=== PATIENT | female | born 1965 | race American Indian/Alaskan Native ===

== ENCOUNTER 2017-10-22 14:12 | Outpatient (CLI) | payer BC ==
--- NOTE | 2017-10-24 19:13 | Magnetic Resonance Report ---
FINAL REPORT PROCEDURE: MR UE JOINT LT WO/W CON TECHNIQUE: Magnetic resonance imaging of the LEFT shoulder was performed using standard pulse sequences before and after the IV injection of paramagnetic contrast. CPT 98527 HISTORY: LEFT SHOULDER PAIN COMPARISON: No prior studies are available for comparison. FINDINGS: No fracture dislocation or joint effusion is seen. There is mild hypertrophic degenerative changes in the AC joint. There appears to be a small bony spur projecting from the distal end of the acromion. Small cystic areas are seen in the superior lateral aspect of the humeral head adjacent to greater tuberosity. There is minimal linear enhancement of the distal supraspinatus tendon on the postcontrast coronal images suggesting a small area of tendinitis. The supraspinatus, the infra spinatus teres minor and subscapularis tendons otherwise appear intact. Long head of the biceps tendon is appropriately located within its groove. Glenoid labrum appears intact. Biceps anchor appears intact. There is mild enhancement of the subacromial/subdeltoid bursa consistent with mild bursitis. IMPRESSION: There appears to be a small spur projecting from the distal end of the acromion and mild nonspecific cystic degenerative changes in the superior lateral aspect of the humeral head adjacent to greater tuberosity. There is minimal linear enhancement in the supraspinatus tendon suggesting tendinitis. I do not see a discrete tear or retraction. Remainder of the rotator cuff appears intact. There is mild enhancement of the subacromial subdeltoid bursa consistent with mild bursitis. There is mild hypertrophic degenerative change in the AC joint. No other abnormalities are identified.
== END 2017-10-22 14:13 | disposition home or self-care (01) ==
LOC: SPVIMAG 14:12
DX: M19.012 Primary osteoarthritis, left shoulder (principal)
CPT/HCPCS: 73223; A9577

== ENCOUNTER 2018-01-29 06:52 | Day surgery (SDC) | payer BC ==
[~2018-01-29 06:52] MED LIST: WATER FOR IRRIG STERILE IR ONE
[2018-01-29] MEDS ORDERED: DIPRIVAN 10 MG/ML IV ONE ×2 (08:10→08:11)
[2018-01-29] MEDS ORDERED: WATER FOR IRRIG STERILE IR ONE (08:10)
--- NOTE | 2018-01-29 09:00 | Short Stay Summary ---
Short Stay Documentation Date of service: 01/29/18 Narrative H&P: The patient presents for her first screening colonoscopy. - History Past Medical History: arthritis, hypertension Past Surgical History: appendectomy Social history: no significant social history, no smoking, no alcohol abuse, no prescription drug abuse - Allergies and Medications Current Medications: Allergies penicillin Allergy (Verified 06/07/15 02:39) Rash Home Medications Medication Instructions Recorded Confirmed Last Taken Type ALPRAZolam [Xanax TAB] 0.5 mg PO QHS 06/07/15 06/07/15 Unknown History Bisoprolol/Hydrochlorothiazide 1 tab PO BID 06/07/15 06/07/15 Unknown History [Bisoprolol-Hctz 5-6.25 mg Tab] Butalb/Acetaminophen/Caffeine 1 cap PO Q6HR PRN 06/07/15 06/07/15 Unknown History [Fioricet 50-300-40 mg CAP] Folic Acid 1 tab PO DAILY 06/07/15 06/07/15 Unknown History HYDROcodone/APAP 5-325 [Panther Burn 1 each PO Q6HR PRN 06/07/15 06/07/15 Unknown History 5/325] Losartan/Hydrochlorothiazide 1 tab PO DAILY 06/07/15 06/07/15 Unknown History [Losartan-Hctz 100-25 mg Tab] Methotrexate Sodium [Methotrexate] 10 mg PO QWEEK 06/07/15 06/07/15 Unknown History Potassium Chloride 20 meq PO BID 06/07/15 06/07/15 Unknown History Sertraline [Zoloft] 50 mg PO QDAY 06/07/15 06/07/15 Unknown History cloNIDine [Catapres] 0.1 mg PO Q8H 06/07/15 06/07/15 Unknown History predniSONE [Deltasone] 5 mg PO QDAY 06/07/15 06/07/15 Unknown History ALPRAZolam [Xanax TAB] 0.5 mg PO BID #60 tablet 06/08/15 Unknown Rx - Physical exam General appearance: no acute distress, well-nourished Integumentary: no rash, no growths HEENT: Atraumatic, PERRLA, EOMI, Mucous membr. moist/pink Lungs: Clear to auscultation, Normal air movement Breasts: deferred Heart: Regular rate, Normal S1, Normal S2, No murmurs Gastrointestinal: normal, tenderness, distended, masses, organomegaly Female Genitourinary: deferred Rectal Exam: deferred Extremities: no ischemia, pulses intact, pulses symmetrical Neurological: Normal gait, Normal speech, Strength at 5/5 X4 ext, Normal tone, Sensation intact, Cranial nerves 3-12 NL - Brief post op/procedure progress note Date of procedure: 01/29/18 Findings: see dictated report. Estimated blood loss: none Pathology: none Condition: stable - Disposition Condition at discharge: Good Disposition: DC-01 TO HOME OR SELFCARE Short Stay Discharge Plan Activity: other (no driving for 24 hours) Weight Bearing Status: Weight Bear as Tolerated Diet: regular Follow up with: AYO DOMINGO MD [Primary Care Provider] - 7 Days
--- NOTE | 2018-01-29 09:01 | Operative Report ---
Operative Report Operative Report: Date of procedure: 01/29/2018 Preprocedure diagnosis: Colon cancer screening, first study. Average risk. Post procedure diagnosis: Normal colon Procedure: Colonoscopy to the cecum Endoscopist: Dr. Encinas Anesthesia: Monitored anesthesia care per anesthesia department Estimated blood loss: 0 Medications: Monitored anesthesia care. See separate report by anesthesia for details. After careful discussion of the nature and purpose of the procedure as well as details of the technique risks benefits and alternatives the patient gave consent. Please see recent history and physical from the office. The patient was placed in the left lateral decubitus position and medicated per anesthesia. A rectal exam was performed sphincter tone was normal there were no masses palpable. The Nitro[employer] 570 scope was passed transanally and advanced under continuous direct vision without difficulty to the cecum. The colon was well prepared. The cecum was normal. The ascending colon was normal and on forward and retroflexed views. The transverse colon, descending colon, and sigmoid colon were normal. The rectum was normal on forward and retroflexed views. The procedure was well-tolerated overall and the patient was observed in recovery. Conclusions: Normal colonoscopy to the cecum. Plan: Repeat colonoscopy in 10 years, sooner if clinically indicated Signed electronically: Prosper Encinas M.D.
[2018-01-29] MEDS ORDERED: NACL 0.9% 1000 ML 1,000 ML IV SCH (10:00)
--- NOTE | 2018-01-29 10:35 | Anesthesia Consultation ---
Anesthesia Consult and Med Hx Date of service: 01/29/18 - Airway Anesthetic Teeth Evaluation: Good ROM Head & Neck: Adequate Mental/Hyoid Distance: Adequate Mallampati Class: Class II Intubation Access Assessment: Probably Good - Pulmonary Exam CTA: Yes - Cardiac Exam Cardiac Exam: RRR - Pre-Operative Health Status ASA Pre-Surgery Classification: ASA2 Proposed Anesthetic Plan: MAC - Cardiovascular System Hx Hypertension: Yes - Central Nervous System Hx Neuromuscular Disorder: Yes (Rheumatoid arthiritis )
--- NOTE | 2018-01-29 10:36 | Anesthesia Day of Surgery ---
Anesthesia Day of Surgery - Day of Surgery Patient Examined: Yes Patient H&P Reviewed: Yes Patient is NPO: Yes
--- NOTE | 2018-01-29 14:35 | Post Anesthesia Evaluation ---
- Post Anesthesia Evaluation Patient Participated: Yes Airway Patent: Yes Stable Respiratory Function: Yes Nausea/Vomiting: No Temp > 96.8F: Yes Pain Manageable: Yes Adequeate Hydration: Yes Anesthesia Complications: No
[2018-01-29 17:31] VITALS: BP 114/61
== END 2018-01-29 06:53 | disposition home or self-care (01) ==
LOC: GIO 06:52
PROVIDERS: ATTEND Internal Medicine Gastroenterology
DX: Z12.11 Encounter for screening for malignant neoplasm of colon (principal); I10 Essential (primary) hypertension; M06.9 Rheumatoid arthritis, unspecified; Z88.0 Allergy status to penicillin
CPT/HCPCS: 45378; J2704; J7030

== ENCOUNTER 2018-09-27 07:38 | Outpatient (CLI) | payer BC ==
--- NOTE | 2018-09-27 10:08 | Mammography Report ---
BILATERAL DIGITAL SCREENING MAMMOGRAM with CAD: 09/27/18 CLINICAL: Routine screening. COMPARISON:None available. However, a prior mammogram was apparently done at [facility]. FINDINGS: The breasts are heterogeneously dense, which may obscure small masses. A right asymmetry on the MLO view requires comparison with a prior mammogram or additional imaging.No architectural distortion or suspicious calcifications.The left breast is negative. IMPRESSION: Right asymmetry requiring further evaluation. BI-RADS CATEGORY: 0 -- Additional Evaluation Required RECOMMENDATION: Comparison with a previous mammogram. We will attempt to obtain a prior mammogram for comparison. If we do not obtain a prior mammogram within 30 days, a revised report will be issued recommending a recall for additional imaging. Please be advised that the patient should not schedule an appointment for return until adequate time (at least 2 weeks) has passed for us to obtain the prior mammogram. ACR BI-RADS MAMMOGRAPHIC CODES: 0 = Needs additional imaging evaluation; 1 = Negative; 2 = Benign; 3 = Probably benign; 4 = Suspicious; 5 = Malignant; 6 = Known biopsy-proven malignancy COMMENT: 1. Dense breast tissue, i.e., adenosis, fibrocystic changes, etc., may obscure an underlying neoplasm. 2. Approximately 10% of cancers are not detected with mammography. 3. A negative mammography report should not delay biopsy if a clinically suspicious mass is present. COMMENT: Patient follow-up letters are generated via our [employer] application.
== END 2018-09-27 07:39 | disposition home or self-care (01) ==
LOC: MAMMO 07:38
DX: Z12.31 Encounter for screening mammogram for malignant neoplasm of breast (principal); I10 Essential (primary) hypertension; E11.9 Type 2 diabetes mellitus without complications; E78.5 Hyperlipidemia, unspecified; M19.90 Unspecified osteoarthritis, unspecified site; Z90.49 Acquired absence of other specified parts of digestive tract
CPT/HCPCS: 77067

== ENCOUNTER 2018-11-26 09:56 | Outpatient (CLI) | payer BC ==
--- NOTE | 2018-11-26 16:12 | Mammography Report ---
RIGHT DIGITAL DIAGNOSTIC MAMMOGRAM and RIGHT BREAST ULTRASOUND: 11/26/18 09:56:00 CLINICAL: Recalled for asymmetry. COMPARISON:09/27/18 screening FINDINGS: Additional mammographic views were performed and are negative. Ultrasound of the upper-outer right breast was performed and demonstrated normal fibroglandular structures with no mass, cyst or shadowing. IMPRESSION: Negative mammogram and negative right breast ultrasound. BI-RADS CATEGORY: 1 -- Negative RECOMMENDATION: Routine mammographic screening in one year. ACR BI-RADS MAMMOGRAPHIC CODES: 0 = Needs additional imaging evaluation; 1 = Negative; 2 = Benign; 3 = Probably benign; 4 = Suspicious; 5 = Malignant; 6 = Known biopsy-proven malignancy COMMENT: 1. Dense breast tissue, i.e., adenosis, fibrocystic changes, etc., may obscure an underlying neoplasm. 2. Approximately 10% of cancers are not detected with mammography. 3. A negative mammography report should not delay biopsy if a clinically suspicious mass is present. COMMENT: Patient follow-up letters are generated via our [employer] application.
== END 2018-11-26 09:57 | disposition home or self-care (01) ==
LOC: MAMMO 09:56
DX: R92.8 Other abnormal and inconclusive findings on diagnostic imaging of breast (principal); I10 Essential (primary) hypertension; E11.9 Type 2 diabetes mellitus without complications; E78.5 Hyperlipidemia, unspecified; M19.90 Unspecified osteoarthritis, unspecified site; Z90.49 Acquired absence of other specified parts of digestive tract

== ENCOUNTER 2019-07-29 06:13 | Outpatient (CLI) | payer BC ==
[2019-07-29 06:42] LABS: Hematocrit 36.2 % (30.3-42.9); Hemoglobin 12.3 gm/dl (10.1-14.3); Mean Corpuscular HGB Conc 34 % (30-34); Mean Corpuscular Volume 85 fl (79-97); Platelet Count 264 K/mm3 (140-440); Red Blood Count 4.29 M/mm3 (3.65-5.03)
[2019-07-29 07:09] LABS: Alanine Aminotransferase 11 units/L (7-56); BUN/Creatinine Ratio 14; Blood Urea Nitrogen 10 mg/dL (7-17); Hemolysis Index 1
== END 2019-07-29 06:14 | disposition home or self-care (01) ==
LOC: LAB 06:13
PROVIDERS: ATTEND Internal Medicine
DX: R53.83 Other fatigue (principal); I10 Essential (primary) hypertension; M19.90 Unspecified osteoarthritis, unspecified site; Z90.89 Acquired absence of other organs
CPT/HCPCS: 36415; 80053; 84443; 85027

== ENCOUNTER 2019-08-04 14:23 | Outpatient (CLI) | payer BC ==
[2019-08-04 15:03] LABS: BUN/Creatinine Ratio 18; Blood Urea Nitrogen 11 mg/dL (7-17); Calcium 9.4 mg/dL (8.4-10.2); Hemolysis Index 2
== END 2019-08-04 14:24 | disposition home or self-care (01) ==
LOC: LAB 14:23
PROVIDERS: ATTEND Internal Medicine
DX: R53.83 Other fatigue (principal); E87.6 Hypokalemia; I10 Essential (primary) hypertension; E11.9 Type 2 diabetes mellitus without complications; E78.5 Hyperlipidemia, unspecified; Z90.49 Acquired absence of other specified parts of digestive tract
CPT/HCPCS: 36415; 80048

== ENCOUNTER 2020-09-20 06:35 | Outpatient (CLI) | payer BC ==
[2020-09-20 06:56] LABS: Mean Corpuscular HGB Conc 37 % (30-34); Mean Corpuscular Volume 83 fl (79-97); Platelet Count 278 K/mm3 (140-440); Red Blood Count 4.39 M/mm3 (3.65-5.03); Red Cell Distribution Width 14.4 % (13.2-15.2)
[2020-09-20 07:18] LABS: Hematocrit 36.6 % (30.3-42.9); Hemoglobin 13.5 gm/dl (10.1-14.3)
[2020-09-20 07:19] LABS: Alanine Aminotransferase 15 units/L (7-56); Albumin 4.3 g/dL (3.9-5); BUN/Creatinine Ratio 16; Blood Urea Nitrogen 14 mg/dL (7-17); Calcium 9.5 mg/dL (8.4-10.2); HDL Cholesterol 52 mg/dL (40-59); Hemolysis Index 1; LDL Cholesterol,Direct 164 mg/dL (50-130)
== END 2020-09-20 06:36 | disposition home or self-care (01) ==
LOC: LAB 06:35
PROVIDERS: ATTEND Internal Medicine
DX: Z00.00 Encounter for general adult medical examination without abnormal findings (principal); E11.65 Type 2 diabetes mellitus with hyperglycemia; R53.83 Other fatigue; E78.2 Mixed hyperlipidemia; E55.9 Vitamin D deficiency, unspecified
CPT/HCPCS: 36415; 80053; 80061; 82306; 83036; 84443; 85027

== ENCOUNTER 2020-09-27 06:19 | Outpatient (CLI) | payer BC ==
[2020-09-27 07:01] LABS: BUN/Creatinine Ratio 11; Blood Urea Nitrogen 9 mg/dL (7-17); Calcium 9.5 mg/dL (8.4-10.2); Hemolysis Index 5
== END 2020-09-27 06:20 | disposition home or self-care (01) ==
LOC: LAB 06:19
PROVIDERS: ATTEND Internal Medicine
DX: R53.83 Other fatigue (principal)
CPT/HCPCS: 36415; 80048

== ENCOUNTER 2021-05-16 06:15 | Outpatient (CLI) | payer BC ==
[2021-05-16 07:15] LABS: Alanine Aminotransferase 24 units/L (7-56); Albumin 4.2 g/dL (3.9-5); BUN/Creatinine Ratio 14; Blood Urea Nitrogen 13 mg/dL (7-17); Calcium 9.8 mg/dL (8.4-10.2); Hemolysis Index 4
== END 2021-05-16 06:16 | disposition home or self-care (01) ==
LOC: LAB 06:15
PROVIDERS: ATTEND Internal Medicine
DX: R53.83 Other fatigue (principal)
CPT/HCPCS: 36415; 80053; 84443

== ENCOUNTER 2021-10-25 00:01 | Emergency (ER) | payer BC ==
[2021-10-25 00:17] VITALS: BP 168/93
--- NOTE | 2021-10-25 02:29 | Emergency Department Report ---
Chief Complaint: Headache Stated Complaint: HIGH BP HEADACHE - HPI History of Present Illness: 56-year-old female presents to the ED complaining of a headache x1 year. Patient is requesting a CT of the head. States that she do not have a neurology in network with insurance . She states that she currently take a total of 18 different medication for migraines. Patient states that primary care doctor has informed her that she needs to be seen by neurology. Patient denies any nausea ,vomiting or chest pain at present . Patient is alert oriented x4. - Exam Vital Signs: Vital Signs 10/25/21 00:16 Temperature 98.5 F Pulse Rate 66 Respiratory 18 Rate Blood Pressure 168/93 O2 Sat by Pulse 99 Oximetry Physical Exam: General: Awake, appropriately interactive, no acute distress. Neck: Supple. Full range of motion intact. Cardiovascular: Normal peripheral perfusion. Pulmonary: No respiratory distress. Patient is speaking normally without use of accessory muscles. Skin: No apparent rashes or lesions. Neurological: No facial asymmetry. Speech is clear. Follows commands. Patient is alert and oriented. Musculoskeletal: Full range of motion, no crepitus. No tenderness to palpate nonerythematous no edema test appreciated. Able to bear weight and ambulate without difficulty. Distal neurovascular and motor/sensory function is intact. Psych: Cooperative. Appropriate mood and affect. MSE screening note: Focused history and physical exam performed. Due to findings the following was ordered: 56-year-old female presents to the ED complaining of a headache x1 year. Patient is requesting a CT of the head. States that she do not have a neurology in network with insurance . She states that she currently take a total of 18 different medication for migraines. Patient states that primary care doctor has informed her that she needs to be seen by neurology. Patient denies any nausea ,vomiting or chest pain at present . Patient is alert oriented x4. Discussed plan of care with patient. Patient discharged stable. Patient did not meet criteria for CT of the head Patient discussed with doctor:: TANNER LAGUNAS ED Disposition for MSE Clinical Impression: Headache Disposition: HOME / SELF CARE / HOMELESS Is pt being admited?: No Does the pt Need Aspirin: No Condition: Stable Instructions: Migraine Headache, [id number] Additional Instructions: Follow-up with primary care doctor Follow-up with neurology Return to ED for any worsening or new symptoms ED Review of Systems ROS: Stated complaint: HIGH BP HEADACHE Other details as noted in HPI Constitutional: denies: chills, fever Eyes: denies: eye pain, eye discharge, vision change ENT: denies: ear pain, throat pain Respiratory: denies: cough, shortness of breath, wheezing Cardiovascular: denies: chest pain, palpitations Endocrine: no symptoms reported Gastrointestinal: denies: abdominal pain, nausea, diarrhea Genitourinary: denies: urgency, dysuria, discharge Musculoskeletal: denies: back pain, joint swelling, arthralgia Skin: denies: rash, lesions Neurological: headache. denies: weakness, paresthesias Psychiatric: denies: anxiety, depression Hematological/Lymphatic: denies: easy bleeding, easy bruising
== END 2021-10-25 03:00 | disposition home or self-care (01) ==
LOC: ED 00:01
DX: R51.9 Headache, unspecified (principal)
CPT/HCPCS: 99282

== ENCOUNTER 2022-05-16 22:22 | Emergency (ER) | payer BC ==
[2022-05-17] MEDS ORDERED: ONDANSETRON 4 MG ODT TAB PO ONE (00:27)
[2022-05-17] MEDS ORDERED: IBUPROFEN 600 MG TAB PO ONE (00:27)
[2022-05-17] MEDS ORDERED: oxyCODONE /ACETAMINOPHEN 5-325MG TAB PO ONE (00:27)
--- NOTE | 2022-05-17 01:15 | XRay Report ---
XR ankle 3+V RT INDICATION / CLINICAL INFORMATION: fall - pain COMPARISON: None available. AP, LATERAL, AND OBLIQUE VIEWS RIGHT ANKLE FINDINGS: A thin curvilinear calcification along the lateral margin of the talus possibly reflects acute avulsi on. Soft tissue swelling overlies the lateral malleolus. Well-corticated bone fragments adjacent to t he tip of the medial malleolus are favored to reflect chronic avulsion injury. IMPRESSION: 1. Soft tissue swelling compatible with inversion injury. Small avulsion fragment adjacent to the lat eral margin of the talus suggested. Signer Name: Milton Gonzalez II, MD Signed: 05/17/2022 1:11 AM Workstation Name: [id number]
--- NOTE | 2022-05-17 01:17 | XRay Report ---
RIGHT FOOT 3 VIEW(S) INDICATION / CLINICAL INFORMATION: fall - pain COMPARISON: None available. FINDINGS: No fracture, dislocation, or significant soft tissue abnormality is demonstrated. No radiopaque forei gn bodies are identified. Mild hallux valgus deformity. IMPRESSION: 1. No evidence of acute pathology. Signer Name: Milton Gonzalez II, MD Signed: 05/17/2022 1:13 AM Workstation Name: [id number]
--- NOTE | 2022-05-17 01:20 | XRay Report ---
LEFT HIP 3 VIEW(S) INDICATION / CLINICAL INFORMATION: Fall - pain COMPARISON: None available. FINDINGS: No fracture, dislocation, or significant soft tissue abnormality is demonstrated. No radiopaque forei gn bodies are identified. Small vessel osteophytes are noted along the inferior left femoral head. IMPRESSION: 1. No radiographic evidence of acute fracture. Signer Name: Milton Gonzalez II, MD Signed: 05/17/2022 1:15 AM Workstation Name: [id number]
--- NOTE | 2022-05-17 01:48 | Emergency Department Report ---
ED Lower Extremity HPI - General Chief Complaint: Extremity Injury, Lower Stated Complaint: RIGHT FOOT INJURY AND LEFT HIP PAIN Source: patient Mode of arrival: Ambulatory Limitations: No Limitations - History of Present Illness Initial Comments: Patient is a 56-year-old female with a history of hypertension and rheumatoid arthritis who presents to the ED with complaint of acute onset persistent right ankle and foot and left hip pain for the last 3 days after she slipped and fell down the stairs when moving furniture from the house. Patient states that she slipped down as she came out of the house and heard a pop and landed on her right ankle after twisting the right ankle. Patient states that she can barely walk because of worsening pain in the right ankle and foot. Patient denies head or neck injuries, back pain, chest pain or shortness of breath, dizziness, syncope, seizures, numbness and tingling or weakness of upper and lower extremities bilaterally. MD Complaint: hip injury (left hip pain), ankle injury -: Gradual, days(s) (3) Injury: Hip: Left (pain), Ankle: Right (pain, swelling), Foot: Right (pain) Type of Injury: blunt Place: home Severity: severe Severity scale (0 -10): 8 Improves With: rest Worsens With: weight bearing, movement, palpation Context: fall, walking Associated Symptoms: swelling, able to partially bear weight. denies: numbness, tingling - Related Data Home Medications Medication Instructions Recorded Confirmed Last Taken ALPRAZolam [Xanax TAB] 0.5 mg PO QHS 06/07/15 06/07/15 Unknown Bisoprolol/Hydrochlorothiazide 1 tab PO BID 06/07/15 06/07/15 Unknown [Bisoprolol-Hctz 5-6.25 mg Tab] Butalb/Acetaminophen/Caffeine 1 cap PO Q6HR PRN 06/07/15 06/07/15 Unknown [Fioricet 50-300-40 mg CAP] Folic Acid 1 tab PO DAILY 06/07/15 06/07/15 Unknown HYDROcodone/APAP 5-325 [Chilton 1 each PO Q6HR PRN 06/07/15 06/07/15 Unknown 5-325 mg TAB] Losartan/Hydrochlorothiazide 1 tab PO DAILY 06/07/15 06/07/15 Unknown [Losartan-Hctz 100-25 mg Tab] Potassium Chloride 20 meq PO BID 06/07/15 06/07/15 Unknown Sertraline [Zoloft] 50 mg PO QDAY 06/07/15 06/07/15 Unknown cloNIDine [Catapres] 0.1 mg PO Q8H 06/07/15 06/07/15 Unknown metHOTREXate sodium [Methotrexate] 10 mg PO QWEEK 06/07/15 06/07/15 Unknown predniSONE [Deltasone] 5 mg PO QDAY 06/07/15 06/07/15 Unknown Previous Rx's Medication Instructions Recorded Last Taken Type ALPRAZolam [Xanax TAB] 0.5 mg PO BID #60 tablet 06/08/15 Unknown Rx Ibuprofen [Motrin] 800 mg PO Q8HR PRN #30 tablet 05/17/22 Unknown Rx methOCARBAMOL [Robaxin TAB] 750 mg PO Q12H PRN #30 tab 05/17/22 Unknown Rx oxyCODONE /ACETAMINOPHEN [Percocet 1 tab PO Q6HR PRN #12 tablet 05/17/22 Unknown Rx 5/325] Allergies Allergy/AdvReac Type Severity Reaction Status Date / Time penicillin Allergy Rash Verified 06/07/15 02:39 ED Review of Systems ROS: Stated complaint: RIGHT FOOT INJURY AND LEFT HIP PAIN Other details as noted in HPI Constitutional: denies: chills, fever Eyes: denies: eye pain, eye discharge, vision change ENT: denies: ear pain, throat pain Respiratory: denies: cough, shortness of breath, wheezing Cardiovascular: denies: chest pain, palpitations Endocrine: no symptoms reported Gastrointestinal: denies: abdominal pain, nausea, diarrhea Genitourinary: denies: urgency, dysuria, discharge Musculoskeletal: joint swelling (right elisabet and foot swelling), arthralgia (right ankle, right foot and left hip pain). denies: back pain Skin: denies: rash, lesions Neurological: denies: headache, weakness, paresthesias Psychiatric: denies: anxiety, depression Hematological/Lymphatic: denies: easy bleeding, easy bruising ED Past Medical Hx - Past Medical History Hx Hypertension: Yes Hx Congestive Heart Failure: No Hx Diabetes: No Hx Arthritis: Yes Hx Headaches / Migraines: Yes Hx Asthma: No Hx COPD: No - Surgical History Hx Appendectomy: Yes Additional Surgical History: , HERNIA - Social History Smoking Status: Never Smoker - Medications Home Medications: Home Medications Medication Instructions Recorded Confirmed Last Taken Type ALPRAZolam [Xanax TAB] 0.5 mg PO QHS 06/07/15 06/07/15 Unknown History Bisoprolol/Hydrochlorothiazide 1 tab PO BID 06/07/15 06/07/15 Unknown History [Bisoprolol-Hctz 5-6.25 mg Tab] Butalb/Acetaminophen/Caffeine 1 cap PO Q6HR PRN 06/07/15 06/07/15 Unknown History [Fioricet 50-300-40 mg CAP] Folic Acid 1 tab PO DAILY 06/07/15 06/07/15 Unknown History HYDROcodone/APAP 5-325 [Chilton 1 each PO Q6HR PRN 06/07/15 06/07/15 Unknown History 5-325 mg TAB] Losartan/Hydrochlorothiazide 1 tab PO DAILY 06/07/15 06/07/15 Unknown History [Losartan-Hctz 100-25 mg Tab] Potassium Chloride 20 meq PO BID 06/07/15 06/07/15 Unknown History Sertraline [Zoloft] 50 mg PO QDAY 06/07/15 06/07/15 Unknown History cloNIDine [Catapres] 0.1 mg PO Q8H 06/07/15 06/07/15 Unknown History metHOTREXate sodium [Methotrexate] 10 mg PO QWEEK 06/07/15 06/07/15 Unknown History predniSONE [Deltasone] 5 mg PO QDAY 06/07/15 06/07/15 Unknown History ALPRAZolam [Xanax TAB] 0.5 mg PO BID #60 tablet 06/08/15 Unknown Rx Ibuprofen [Motrin] 800 mg PO Q8HR PRN #30 tablet 05/17/22 Unknown Rx methOCARBAMOL [Robaxin TAB] 750 mg PO Q12H PRN #30 tab 05/17/22 Unknown Rx oxyCODONE /ACETAMINOPHEN [Percocet 1 tab PO Q6HR PRN #12 tablet 05/17/22 Unknown Rx 5/325] ED Physical Exam - General Limitations: No Limitations General appearance: alert, in no apparent distress - Head Head exam: Present: atraumatic, normocephalic, normal inspection - Eye Eye exam: Present: normal appearance, PERRL, EOMI Pupils: Present: normal accommodation - ENT ENT exam: Present: normal exam, normal orophraynx, mucous membranes moist, TM's normal bilaterally, normal external ear exam - Neck Neck exam: Present: normal inspection, full ROM. Absent: tenderness - Respiratory Respiratory exam: Present: normal lung sounds bilaterally. Absent: respiratory distress, wheezes, rales, rhonchi, chest wall tenderness, accessory muscle use, decreased breath sounds, prolonged expiratory - Cardiovascular Cardiovascular Exam: Present: regular rate, normal rhythm, normal heart sounds. Absent: systolic murmur, diastolic murmur, rubs, gallop - GI/Abdominal GI/Abdominal exam: Present: soft, normal bowel sounds. Absent: tenderness, guarding, rebound, hyperactive bowel sounds, hypoactive bowel sounds, organomegaly, mass, bruit - Extremities Exam Extremities exam: Present: normal inspection, tenderness (Palpable right ankle and foot tenderness with mild swelling with limited ROM due to pain; Palpable left hip tenderness), normal capillary refill, joint swelling (right ankle). Absent: full ROM (Limited ROM of right ankle due to pain), pedal edema, calf tenderness - Back Exam Back exam: Present: normal inspection, full ROM. Absent: tenderness, CVA tenderness (R), CVA tenderness (L), muscle spasm, paraspinal tenderness, vertebral tenderness - Neurological Exam Neurological exam: Present: alert, oriented X3, CN II-XII intact, normal gait, reflexes normal - Psychiatric Psychiatric exam: Present: normal affect, normal mood - Skin Skin exam: Present: warm, dry, intact, normal color. Absent: rash ED Course Vital Signs 05/16/22 22:54 Temperature 99.4 F Pulse Rate 96 H Respiratory 16 Rate Blood Pressure 146/98 Blood Pressure 146/98 [Right] O2 Sat by Pulse 99 Oximetry ED Lower Extremity MDM - Radiology Data Radiology results: report reviewed, image reviewed [facility] [address] [place] [address] XRay Report Signed Patient: ANTOINETTE VINSON MR#: [id number] : 1965 Acct:[id number] Age/Sex: 56 / F ADM Date: 05/16/22 Loc: ED Attending Dr: Ordering Physician: PEPPER CORONA Date of Service: 05/17/22 Procedure(s): XR ankle 3+V RT Accession Number(s): [id number] cc: PEPPER CORONA Fluoro Time In Minutes: XR ankle 3+V RT INDICATION / CLINICAL INFORMATION: fall - pain COMPARISON: None available. AP, LATERAL, AND OBLIQUE VIEWS RIGHT ANKLE FINDINGS: A thin curvilinear calcification along the lateral margin of the talus possibly reflects acute avulsion. Soft tissue swelling overlies the lateral malleolus. Well-corticated bone fragments adjacent to the tip of the medial malleolus are favored to reflect chronic avulsion injury. IMPRESSION: 1. Soft tissue swelling compatible with inversion injury. Small avulsion fragment adjacent to the lateral margin of the talus suggested. Signer Name: Carmen Ambrocio II, MD Signed: 05/17/2022 1:11 AM Workstation Name: [id number] Transcribed By: RAFAL Dictated By: CARMEN AMBROCIO II, MD Electronically Authenticated By: CARMEN AMBROCIO II, MD Signed Date/Time: 05/17/22110 DD/ 9 TD/TT: [facility] [address] [place] [address] XRay Report Signed Patient: ANTOINETTE VINSON MR#: [id number] : 1965 Acct:[id number] Age/Sex: 56 / F ADM Date: 05/16/22 Loc: ED Attending Dr: Ordering Physician: PEPPER CORONA Date of Service: 05/17/22 Procedure(s): XR foot 3+V RT Accession Number(s): [id number] cc: PEPPER CORONA Fluoro Time In Minutes: RIGHT FOOT 3 VIEW(S) INDICATION / CLINICAL INFORMATION: fall - pain COMPARISON: None available. FINDINGS: No fracture, dislocation, or significant soft tissue abnormality is demonstrated. No radiopaque foreign bodies are identified. Mild hallux valgus deformity. IMPRESSION: 1. No evidence of acute pathology. Signer Name: Carmen Ambrocio II, MD Signed: 05/17/2022 1:13 AM Workstation Name: [id number] Transcribed By: RAFAL Dictated By: CARMEN AMBROCIO II, MD Electronically Authenticated By: CARMEN AMBROCIO II, MD Signed Date/Time: 05/17/22112 DD/ 0 TD/TT: [facility] [address] [place] [address] XRay Report Signed Patient: ANTOINETTE VINSON MR#: [id number] : 1965 Acct:[id number] Age/Sex: 56 / F ADM Date: 05/16/22 Loc: ED Attending Dr: Ordering Physician: PEPPER CORONA Date of Service: 05/17/22 Procedure(s): XR hip 2-3V LT Accession Number(s): [id number] cc: PEPPER CORONA Fluoro Time In Minutes: LEFT HIP 3 VIEW(S) INDICATION / CLINICAL INFORMATION: Fall - pain COMPARISON: None available. FINDINGS: No fracture, dislocation, or significant soft tissue abnormality is demonstrated. No radiopaque foreign bodies are identified. Small vessel osteophytes are noted along the inferior left femoral head. IMPRESSION: 1. No radiographic evidence of acute fracture. Signer Name: Carmen Ambrocio II, MD Signed: 05/17/2022 1:15 AM Workstation Name: [id number] Transcribed By: RAFAL Dictated By: CARMEN AMBROCIO II, MD Electronically Authenticated By: CARMEN AMBROCIO II, MD Signed Date/Time: 05/17/22114 DD/ 3 TD/TT: - Medical Decision Making This is a 56-year-old female with a history of hypertension and rheumatoid arthritis who presents to the ED with complaint of acute onset persistent right ankle and foot and left hip pain for the last 3 days after she slipped and fell down the stairs when moving furniture from the house. Patient states that she slipped down as she came out of the house and heard a pop and landed on her right ankle after twisting the right ankle. Patient states that she can barely walk because of worsening pain in the right ankle and foot. In the ED, patient is alert and oriented x3 and is not in any distress. Patient is hemodynamically stable. Patient was treated for pain in the ED. Left hip x-ray showed no acute fractures or subluxation. Right foot x-ray showed no acute fractures or subluxations but soft tissue swelling. Right ankle x-ray showed a thin curvilinear calcification along the lateral margin of the talus possibly reflects acute avulsion. Soft tissue swelling overlies the lateral malleolus. Well-corticated bone fragments adjacent to the tip of the medial malleolus are favored to reflect chronic avulsion injury. Patient right ankle and foot was splinted with a sugar-tong and patient fitted with crutches. Patient was discharged home on pain medications and advised to follow-up with orthopedic surgeon Dr. Hernandez for further evaluation. Patient was also advised to return to the ED immediately if symptoms get worse. - Differential Diagnosis ankle fracture; foot sprain; hip contusion Critical care attestation.: If time is entered above; I have spent that time in minutes in the direct care of this critically ill patient, excluding procedure time. ED Disposition Clinical Impression: Avulsion fracture of right ankle Qualifiers: Encounter type: initial encounter Fracture type: closed Qualified Code(s): S82.891A - Other fracture of right lower leg, initial encounter for closed fracture Sprain of right foot Qualifiers: Encounter type: initial encounter Qualified Code(s): S93.601A - Unspecified sprain of right foot, initial encounter Contusion of left hip and thigh Qualifiers: Encounter type: initial encounter Qualified Code(s): S70.02XA - Contusion of left hip, initial encounter; S70.12XA - Contusion of left thigh, initial encounter Disposition: HOME / SELF CARE / HOMELESS Is pt being admited?: No Does the pt Need Aspirin: No Condition: Stable Instructions: Cast or Splint Care, Adult, [id number], Contusion, Easy -to-Read, Ankle Fracture, [id number], Avulsion Fracture of the Foot Additional Instructions: The left hip x-ray showed no acute fractures or subluxations. The right ankle x- ray showed Prescriptions: Ibuprofen [Motrin] 800 mg PO Q8HR PRN #30 tablet PRN Reason: Pain , Severe (7-10) oxyCODONE /ACETAMINOPHEN [Percocet 5/325] 1 tab PO Q6HR PRN #12 tablet PRN Reason: Pain methOCARBAMOL [Robaxin TAB] 750 mg PO Q12H PRN #30 tab PRN Reason: Muscle Spasm Referrals: [facility] [Provider Group] - 3-5 Days ANASTASIIA HERNANDEZ MD [Staff Physician] - 3-5 Days Time of Disposition: 01:49 Print Language: ICELANDIC
[2022-05-17 04:47] VITALS: BP 145/98
== END 2022-05-17 04:48 | disposition home or self-care (01) ==
LOC: ED 22:22
DX: S93.601A Unspecified sprain of right foot, initial encounter (principal); S82.891A Other fracture of right lower leg, initial encounter for closed fracture; S70.02XA Contusion of left hip, initial encounter; W19.XXXA Unspecified fall, initial encounter; Y93.89 Activity, other specified; Y92.89 Other specified places as the place of occurrence of the external cause; Y99.8 Other external cause status
CPT/HCPCS: 99283; J3490; Q0162